=== PATIENT | female | born 1975 | race African-American/Black ===

== ENCOUNTER 2017-12-28 16:48 | Observation (INO) | payer BC ==
[~2017-12-28] VITALS: Ht 170.2 cm; Wt 76.8 kg
--- NOTE | ~2017-12-28 | HP ---
PATIENT: AIDEE APODACA MEDICAL RECORD: [id number] ACCOUNT: [id number] LOCATION:[id number] : 79 ADMISSION DATE: 12/28/17 HISTORY AND PHYSICAL EXAMINATION DATE OF ADMISSION: 12/28/2017. CHIEF COMPLAINT: Abdominal pain, black stool. HISTORY OF PRESENT ILLNESS: This is a 42-year-old -[place] female who presented to the office stating "if I eat anything, I feel very uncomfortable." These symptoms have been going on for the last 4-5 days with upper and right upper quadrant abdominal pain. She also reports black tarry stools. She has not taken Pepto-Bismol or iron pills. She feels bloated. She is afraid to eat because of the pain after she eats. She was seen earlier this month by our nurse practitioner diagnosed with some anemia and was prescribed iron pills, but she states she has not taken anything at this point. She is admitted for further studies, CBC done in our office showed her hemoglobin was down to 10 and with black tarry stools, low hemoglobin, and abdominal pain, it was felt she may have either an acute ulcer, upper GI bleeding, possible gallbladder problems. PAST MEDICAL AND SURGICAL HISTORY: Migraine headaches. She has had a tubal ligation. HOME MEDICATIONS: She takes Claritin occasionally. DRUG ALLERGIES: None known. HABITS: She denies ever smoking. No alcohol or drugs. FAMILY HISTORY: Both parents are alive with no significant health problems. SOCIAL HISTORY: She is . REVIEW OF SYSTEMS: GENERAL: No major weight changes. HEENT: No particular sinus or allergy problems. RESPIRATORY: No history of asthma or emphysema. CARDIAC: No history of heart problems. GASTROINTESTINAL: No history of abdominal problems. GENITOURINARY: No significant problems there. MUSCULOSKELETAL: No problems. NEUROLOGIC: Has history of migraines. PSYCHIATRIC: Denies depression or melancholia. PHYSICAL EXAMINATION: VITAL SIGNS: Temperature 97.5, pulse 71, respirations 18, blood pressure 124/81. GENERAL: She does not appear to be in acute distress. She is awake and alert. HEENT: Grossly within normal limits. NECK: Supple. HEART: Regular rate and rhythm without murmur. LUNGS: Clear. ABDOMEN: Soft, but tender, especially in the right upper quadrant. No guarding, no rebound, no mass. Bowel sounds are active. HISTORY AND PHYSICAL [id number] AIDEE APODACA EXTREMITIES: No edema. LABORATORY DATA: In my office showed a normal white count with hemoglobin 10, hematocrit 31, MCV just a little low at 79. ASSESSMENT: Upper abdominal pain with worsening anemia and dark stool. PLAN: There are no wounds in the hospital at this time. She will be sent to the ER and then directly admitted from there. GI is to be consulted and will get ultrasound of the gallbladder. Other tests and procedures as warranted. TRANSINT:[id number] Voice Confirmation ID: [id number] DOCUMENT ID: [id number] VICKI NINO MD at 1350 CC: [id number] DICTATION DATE: 12/29/17 130 [employer]: 12/29/17 1336 ADM IN [place] [id number] [place] [id number]
[2017-12-28 18:47] VITALS: BP 137/76
[2017-12-28 18:56] LABS: BASOPHILS 0.5 % (0-2); EOSINOPHILS 6.5 % (0-7); HEMATOCRIT 31.5 % (36.0-48.0); HEMOGLOBIN 10.3 g/dL (12-16); IMMATURE GRANULOCYTES 0.2 % (0-5); LYMPHOCYTES 36.7 % (15-50); MCH 25.3 pg (26.0-34.0); MCHC 32.7 g/dL (31.0-37.0); MCV 77.4 fL (80.0-100.0); MONOCYTES 4.7 % (2-11); NEUTROPHILS 51.4 % (40-80); PLATELET COUNT 239 10x3/uL (130-400); RBC 4.07 10x6/uL (4.00-5.40); WBC 6.2 10x3/uL (4.8-10.8)
[2017-12-28 19:25] LABS: ALBUMIN 3.7 g/dL (3.4-5.0); ALKALINE PHOSPHATASE 58 U/L (46-116); ALT (SGPT) 21 U/L (10-68); BILIRUBIN - TOTAL 0.31 mg/dL (0.2-1.3); CALC OSMOLALITY 281 mosm/kg (275-300); CALCIUM 9.2 mg/dL (8.5-10.1); CARBON DIOXIDE 28.4 mmol/L (21.0-32.0); CHLORIDE - SERUM 106 mmol/L (98-107); CREATININE - SERUM 0.8 mg/dL (0.6-1.3); GLUCOSE 88 mg/dL (74-106); LIPASE 107 U/L (73-393); POTASSIUM - SERUM 4.1 mmol/L (3.5-5.1); PROTEIN - SERUM 7.6 g/dL (6.4-8.2); SODIUM 142 mmol/L (136-145); UREA NITROGEN 13 mg/dL (7-18); eGFR NON AFRICAN AMERICAN 84 mL/min (90-120)
[2017-12-28 19:51] LABS: APPEARANCE HAZY (CLEAR); BILIRUBIN NEGATIVE (NEGATIVE); COLOR YELLOW (YELLOW); GLUCOSE NEGATIVE (NEGATIVE); KETONE NEGATIVE (NEGATIVE); NITRITE NEGATIVE (NEGATIVE); PH 5.5 (5.0-6.0); PROTEIN NEGATIVE (NEGATIVE); UROBILINOGEN NORMAL (NORMAL)
[2017-12-29] VITALS (7 sets, daily range): BP systolic 108–133; BP diastolic 55–76; Ht 170.2 cm; Wt 76.8 kg
[2017-12-29 05:18] LABS: BASOPHILS 0.3 % (0-2); EOSINOPHILS 4.1 % (0-7); HEMATOCRIT 31.2 % (36.0-48.0); IMMATURE GRANULOCYTES 0.2 % (0-5); LYMPHOCYTES 29.1 % (15-50); MCH 24.9 pg (26.0-34.0); MCHC 32.1 g/dL (31.0-37.0); MCV 77.6 fL (80.0-100.0); MONOCYTES 5.2 % (2-11); NEUTROPHILS 61.1 % (40-80); PLATELET COUNT 234 10x3/uL (130-400); RBC 4.02 10x6/uL (4.00-5.40); WBC 6.3 10x3/uL (4.8-10.8)
[2017-12-29 05:42] LABS: CALC OSMOLALITY 281 mosm/kg (275-300); CALCIUM 8.6 mg/dL (8.5-10.1); CARBON DIOXIDE 26.2 mmol/L (21.0-32.0); CHLORIDE - SERUM 108 mmol/L (98-107); CREATININE - SERUM 0.7 mg/dL (0.6-1.3); GLUCOSE 92 mg/dL (74-106); POTASSIUM - SERUM 3.9 mmol/L (3.5-5.1); SODIUM 142 mmol/L (136-145); UREA NITROGEN 10 mg/dL (7-18); eGFR NON AFRICAN AMERICAN > 90 mL/min (90-120)
[2017-12-29 09:48] LABS: % SATURATION 15 % (15-55); IRON 53 ug/dl (35-150); TOTAL IRON BIND CAPACITY 347 ug/dl (260-445); UNSAT IRON BIND CAPACITY 294 ug/dl (150-375)
[2017-12-30 02:32] VITALS: BP 104/69
[2017-12-30 04:45] VITALS: BP 115/64
[2017-12-30 06:22] LABS: BASOPHILS 0.6 % (0-2); EOSINOPHILS 8.7 % (0-7); HEMATOCRIT 32.8 % (36.0-48.0); HEMOGLOBIN 10.6 g/dL (12-16); LYMPHOCYTES 32.1 % (15-50); MCH 25.2 pg (26.0-34.0); MCHC 32.3 g/dL (31.0-37.0); MCV 78.1 fL (80.0-100.0); MEAN PLATELET VOLUME 9.1 fL (7.4-10.4); MONOCYTES 6.5 % (2-11); NEUTROPHILS 52.1 % (40-80); PLATELET COUNT 218 10x3/uL (130-400); WBC 5.1 10x3/uL (4.8-10.8)
[2017-12-30 06:36] LABS: INR 1.08 (0.85-1.17); PROTIME 13.6 SECONDS (11.6-15.0)
[2017-12-30 06:47] LABS: ALKALINE PHOSPHATASE 52 U/L (46-116); ALT (SGPT) 16 U/L (10-68); AMYLASE - SERUM 53 U/L (25-115); BILIRUBIN - TOTAL 0.25 mg/dL (0.2-1.3); CALC OSMOLALITY 277 mosm/kg (275-300); CALCIUM 8.8 mg/dL (8.5-10.1); CARBON DIOXIDE 26.2 mmol/L (21.0-32.0); CHLORIDE - SERUM 108 mmol/L (98-107); CREATININE - SERUM 0.7 mg/dL (0.6-1.3); GLUCOSE 89 mg/dL (74-106); LIPASE 111 U/L (73-393); PROTEIN - SERUM 6.7 g/dL (6.4-8.2); SODIUM 141 mmol/L (136-145); UREA NITROGEN 8 mg/dL (7-18); eGFR NON AFRICAN AMERICAN > 90 mL/min (90-120)
[2017-12-30 11:37] VITALS: BP 89/45
[2017-12-30] MEDS ORDERED: PROTONIX40 MG PO (13:20)
[2017-12-30] MEDS ORDERED: PEPCID40 MG PO (13:21)
== END 2017-12-30 15:17 | disposition home or self-care (01) ==
LOC: D.ER 16:48 → OBSVTIME 20:56 → D.EDHOLD 20:56 → D.MS 20:56
PROVIDERS: Emergency Medicine; Family Medicine; Internal Medicine Gastroenterology
DX: K25.4 Chronic or unspecified gastric ulcer with hemorrhage (principal); K21.9 Gastro-esophageal reflux disease without esophagitis; D64.9 Anemia, unspecified; K20.9 Esophagitis, unspecified; K29.80 Duodenitis without bleeding